=== PATIENT | male | born 1960 | race African-American/Black ===

== ENCOUNTER → 2016-05-21 | Outpatient (CLI) | payer MEDICARE, OTHER ==
[2016-05-21 11:46] LABS: ANION GAP 11 (5-19); BLOOD UREA NITROGEN 16 mg/dL (7-20); CALCIUM 9.9 mg/dL (8.4-10.2); CARBON DIOXIDE 29 mmol/L (22-30); CHLORIDE 101 mmol/L (98-107); CREATININE RESULT 1.17 mg/dL (0.52-1.25); GLUCOSE 88 mg/dL (75-110); POTASSIUM 4.5 mmol/L (3.6-5.0); SODIUM 141.4 mmol/L (137-145); URIC ACID 8.1 mg/dL (3.5-8.5)
== END ==
LOC: OD 10:04
PROVIDERS: ATTEND Internal Medicine Nephrology
DX: M10.9 Gout, unspecified (principal)
CPT/HCPCS: 36415; 80048; 84550

== ENCOUNTER 2018-02-18 09:18 | Emergency (ER) | payer MEDICARE, OTHER ==
[2018-02-18] MEDS ORDERED: OXYCODONE-ACETAMINOPHEN 5-325 MG TABLET PO ONE (09:49)
--- NOTE | 2018-02-18 09:52 | ER Document Report ---
HPI - HPI Pain Level: 5 Notes: Patient is a 57-year-old male who comes in with chief complaint of right knee and right ankle pain. Patient reports he woke up with this in the middle the night. Patient denies any known injury. Patient does report that he has had gout in the past, he states this does not feel the same. - CONSTITUTIONAL Constitutional: DENIES: Fever, Chills - EENT EENT: DENIES: Sore Throat, Ear Pain, Eye problems - NEURO Neurology: DENIES: Headache, Weakness, Vision blurred, Dizzinesss / Vertigo - CARDIOVASCULAR Cardiovascular: DENIES: Chest pain - RESPIRATORY Respiratory: DENIES: Trouble Breathing, Coughing - GASTROINTESTINAL Gastrointestinal: DENIES: Abdominal Pain, Black / Bloody Stools - MUSCULOSKELETAL Musculoskeletal: REPORTS: Extremity pain Past Medical History - Social History Smoking Status: Never Smoker Chew tobacco use (# tins/day): No Frequency of alcohol use: None Drug Abuse: None Family History: None Patient has suicidal ideation: No Patient has homicidal ideation: No - Past Medical History Cardiac Medical History: Reports: Hx Hypertension Renal/ Medical History: Denies: Hx Peritoneal Dialysis Musculoskeletal Medical History: Reports Hx Gout Past Surgical History: Reports: Hx Orthopedic Surgery - Hand surgery, back surgery (removed spurs) - Immunizations Hx Diphtheria, Pertussis, Tetanus Vaccination: Yes Vertical Provider Document - CONSTITUTIONAL Notes: PHYSICAL EXAMINATION: GENERAL: Well-appearing, well-nourished and in no acute distress. HEAD: Atraumatic, normocephalic. EYES: Pupils equal round extraocular movements intact, conjunctiva are normal. ENT: Nares patent NECK: Normal range of motion LUNGS: No respiratory distress Musculoskeletal: Limited range of motion from right knee to right foot. Cap refill less than 3 seconds, normal sensation distal to area of pain. Slight erythema noted to the dorsal surface of right foot. NEUROLOGICAL: Normal speech, normal gait. PSYCH: Normal mood, normal affect. SKIN: Warm, Dry, normal turgor, no rashes or lesions noted. - INFECTION CONTROL TRAVEL OUTSIDE OF THE [place] IN LAST 30 DAYS: No Course - Re-evaluation Re-evalutation: 02/18/18 09:51 Patient denies any injury however I will order x-rays of the right knee and right ankle to rule out any acute bony injury. Patient does have a history of gout states he is out of his gout medication, although he reports this does not feel like a typical gout flareup. Patient is already taking meloxicam and gabapentin. I do plan to put him on a short course of oxycodone as well as refill his colchicine. 02/18/18 11:13 X-ray of the right knee and right ankle are negative for any fractures or dislocations. There is a joint effusion noted on the right knee increased from x-ray done several months ago. Patient is without fever or tachycardia, knee is without any erythema. Patient will follow-up with orthopedics outpatient. - Vital Signs Vital signs: Temp Pulse Resp BP Pulse Ox 98.5 F 87 22 H 136/79 H 97 02/18/18 09:24 02/18/18 09:24 02/18/18 09:24 02/18/18 09:24 02/18/18 09:24 Discharge - Discharge Clinical Impression: Knee effusion, right Condition: Stable Disposition: HOME, SELF-CARE Additional Instructions: Knee Effusion You have a fluid collection in the knee joint, called an effusion. This fluid build up can occur from irritation of the synovial membrane lining the knee joint or from a more serious injury to the knee. Irritation of the membrane can occur from excessive, repetitive knee activitiy, like kneeling or squatting for extended periods or even just excessive walking, jogging, or skiing. Effusions also can occur with infections in the joint and with some arthritic conditions, especially gout. Fluid collections in these situations are usually yellow in color and either clear or cloudy in appearance. Significant injury to the knee can result in fluid collection which is partly or entirely blood and this condition is known as a hemarthrosis of the knee joint. If the fluid collection is not too large and/or painful, it can be managed conservatively with rest, ice packs, and anti-inflammatory and pain medications as needed. If the fluid collection is large and very painful, the knee joint can be drained (aspirated) by a relatively minor procedure of inserting a needle in the joint and removing some or all of the fluid present. If your knee was aspirated, you should rest it as much as possible for a few days, keep a pressure dressing around the knee and apply ice packs for at least 48 - 72 hours. If there are signs of developing infection such as heat and redness of the knee, fever, etc. you should return immediately for a recheck. Please follow-up with orthopedics. Take the pain medication as prescribed. I have also prescribed your gout medication in case you need that as well. Prescriptions: Colchicine [Colchicine 0.6 mg Tablet] 0.6 mg PO DAILY #30 tablet Oxycodone HCl/Acetaminophen [Percocet 5-325 mg Tablet] 1 - 2 tab PO Q4H PRN #15 tablet PRN Reason: Referrals: Dennis ESTES MD [ACTIVE STAFF] - Follow up as needed
--- NOTE | 2018-02-18 10:22 | RADIOLOGY REPORT (SQ) ---
EXAM DESCRIPTION: ANKLE RIGHT COMPLETE COMPLETED DATE/TIME: 02/18/2018 10:14 am REASON FOR STUDY: ankle pain . No known injury. Pain on dorsaflexion COMPARISON: None. NUMBER OF VIEWS: Three views. TECHNIQUE: AP, lateral, and oblique radiographic images acquired of the right ankle. LIMITATIONS: None. FINDINGS: MINERALIZATION: Normal. BONES: No acute fracture or dislocation. No worrisome bone lesions. JOINTS: No effusions. SOFT TISSUES: No soft tissue swelling. No foreign body. OTHER: No other significant finding. IMPRESSION: NEGATIVE STUDY OF THE RIGHT ANKLE. NO RADIOGRAPHIC EVIDENCE OF ACUTE INJURY. TECHNICAL DOCUMENTATION: JOB ID: [id number] 2010 [employer]- All Rights Reserved Reading location - IP/workstation name: [email or web address]
--- NOTE | 2018-02-18 10:26 | RADIOLOGY REPORT (SQ) ---
EXAM DESCRIPTION: KNEE RIGHT 4 VIEWS COMPLETED DATE/TIME: 02/18/2018 10:14 am REASON FOR STUDY: right knee pain COMPARISON: 11/12/2014. NUMBER OF VIEWS: Four views. TECHNIQUE: AP, lateral, and both oblique radiographic images acquired of the right knee. LIMITATIONS: None. FINDINGS: MINERALIZATION: Normal. BONES: No acute fracture or dislocation. No worrisome bone lesions. JOINT: Evidence of a right knee effusion. SOFT TISSUES: No soft tissue swelling. No radio-opaque foreign body. OTHER: Vascular calcification noted. . IMPRESSION: Changes of right knee effusion. Otherwise, no significant abnormality seen. TECHNICAL DOCUMENTATION: JOB ID: [id number] 2010 [employer]- All Rights Reserved Reading location - IP/workstation name: [email or web address]
[2018-02-18 11:25] VITALS: BP 135/82
== END 2018-02-18 11:25 | disposition home or self-care (01) ==
LOC: ER 09:18
DX: M25.461 Effusion, right knee (principal); M25.561 Pain in right knee; M25.571 Pain in right ankle and joints of right foot; I10 Essential (primary) hypertension
CPT/HCPCS: 99283; 73610; 73564; A9270